=== PATIENT | male | born 1970 | race African-American/Black ===

== ENCOUNTER 2017-03-22 04:54 | Emergency (ER) | payer MEDICAID ==
[~2017-03-22] VITALS: Ht 170.2 cm; Wt 106.6 kg
[2017-03-22 05:03] VITALS: BP 140/98
== END 2017-03-22 07:28 | disposition home or self-care (01) ==
LOC: ER 04:56
DX: J02.9 Acute pharyngitis, unspecified (principal); F17.200 Nicotine dependence, unspecified, uncomplicated